=== PATIENT | male | born 1970 | race Caucasian/White ===

== ENCOUNTER 2016-06-08 05:42 | Day surgery (SDC) | payer BC ==
[~2016-06-08] VITALS: Ht 175.3 cm; Wt 96.2 kg
[2016-06-08 09:18] VITALS: BP 132/86; Ht 175.3 cm; Wt 96.2 kg
[2016-06-08] MEDS ORDERED: HYDROCODONE-APA1 TAB PO (10:30)
--- NOTE | 2016-06-08 10:39 | NUR ---
VANCOMYCIN 1G INFUSING UPON ARRIVAL TO PACU
--- NOTE | 2016-06-08 17:34 | NUR ---
1130 IV DC WITH CATHER TIP INTACT
--- NOTE | 2016-06-12 17:08 | OP ---
PATIENT NAME: KAYE COLLAZO JR MEDICAL RECORD: [id number] :66 LOCATION:D.OPS ADMISSION DATE: SURGEON: KELLY LEWIS MD DATE OF OPERATION: 06/08/2016 Orthopedic Surgery Operative Note PREOPERATIVE DIAGNOSIS: Medial meniscus tear of the right knee. POSTOPERATIVE DIAGNOSIS: Medial meniscus tear of the right knee. PROCEDURE: Arthroscopic partial medial meniscectomy, right knee. SURGEON: Kelly Lewis MD ANESTHESIA: General. INTRAOPERATIVE COMPLICATIONS: None. SUMMARY OF PATHOLOGIC FINDINGS: The patient had a complex tear of the posterior horn of medial meniscus consistent with the preoperative MRI. OPERATIVE SUMMARY IN DETAIL: After obtaining the appropriate preoperative orthopedic surgery consents as well as anesthetic consultation, evaluation and clearance, the patient was brought to the operating room and placed on the operating table in supine position. After general laryngeal mask was administered, tourniquet was placed about the proximal aspect of the right lower extremity. Right lower extremity was then prepped and draped in routine sterile fashion. The leg was elevated and exsanguinated, tourniquet inflated to 350 mmHg. Routine inferolateral portal was established followed by superomedial portal and inferomedial portal. Diagnostic arthroscopy did reveal the patient to have the above findings. A meniscotome and an arthroscopic resector were utilized to debride the meniscus back to stable meniscal elements. Having completed this, the knee was insufflated with 30 cc of 0.25% Marcaine with epinephrine and 40 mg of Depo-Medrol. Arthroscopy portals were closed in routine interrupted fashion using 4-0 Prolene. Sterile dressings were applied. The patient was awakened, taken to recovery room in stable condition. All final needle and sponge counts were correct. TRANSINT:[id number] Voice Confirmation ID: [id number] DOCUMENT ID: [id number] KELLY LEWIS MD at 1708 CC: [id number] DICTATION DATE: 06/08/16 1029 NEIGHBORHOOD CONSERVATION OFFICER: 06/08/16 1526 DEP [facility] [place] 06/08/[address] [address]
== END 2016-06-08 12:50 | disposition home or self-care (01) ==
LOC: D.OPS 05:42 → D.PAN 10:15 → D.OPS 10:15
DX: S83.231A Complex tear of medial meniscus, current injury, right knee, initial encounter (principal)

== ENCOUNTER 2017-08-10 10:35 | Inpatient (IN) | payer BC ==
[~2017-08-10] VITALS: Ht 175.3 cm; Wt 98.9 kg
--- NOTE | ~2017-08-10 | OP ---
PATIENT NAME: KAYE COLLAZO JR MEDICAL RECORD: [id number] :66 LOCATION:D.[id number] ADMISSION DATE:08/10/17 SURGEON: KELLY LEWIS MD DATE OF OPERATION: 08/10/2017 PREOPERATIVE DIAGNOSIS: Valgus impacted femoral neck fracture of the left hip. POSTOPERATIVE DIAGNOSIS: Valgus impacted femoral neck fracture of the left hip. PROCEDURE: Asnis pinning of the left hip. ANESTHESIA: General. INTRAOPERATIVE COMPLICATIONS: None. SUMMARY OF PATHOLOGIC FINDINGS: While the hip was over the back and in a more valgus position that I wanted preoperatively, it was moved around in to a much more anatomic position using the fracture table. OPERATIVE SUMMARY IN DETAIL: After obtaining the appropriate preoperative orthopedic surgery consent as well as anesthetic consultation, evaluation, and clearance, the patient was brought to the operating room and placed on the operating table in supine position. After general laryngeal mask airway was administered, the patient was placed on the fracture table. The left leg was placed in the traction boot and right leg was placed in the Well-Leg carroll. Only minimal amount of traction was used. Internal rotation resulted in better realignment of the subcapital femoral neck fracture. The hip was prepped and draped in routine sterile fashion. A small incision was made and then under direct fluoroscopic guidance, 3 Asnis screw guidewires were placed on both AP and lateral fluoroscopic planes. Then, the 6.5 short thread Asnis pin 90 times 2 and 95 times 1 were placed in the appropriate positions with good purchase. Final radiographs were taken and submitted for radiologist review. The wound was irrigated and closed in usual fashion. Sterile dressings were applied. The patient was awakened and taken to recovery in stable condition. All final needle and sponge counts were correct. TRANSINT:[id number] Voice Confirmation ID: [id number] DOCUMENT ID: [id number] KELLY LEWIS MD at 1341 CC: [id number] DICTATION DATE: 08/20/172249 [place] [facility] [place] LAW CLERK: 08/21/17 0901 DIS IN 08/12/17 [place] [address]
[~2017-08-10 10:35] MED LIST: HYDROCODONE-APA1 TAB PO
[2017-08-10 14:34] LABS: BASOPHILS 0.2 % (0-2); EOSINOPHILS 0.4 % (0-7); HEMATOCRIT 40.9 % (42.0-54.0); HEMOGLOBIN 14.4 g/dL (13.5-17.5); IMMATURE GRANULOCYTES 0.3 % (0-5); LYMPHOCYTES 8.4 % (15-50); MCH 30.6 pg (26.0-34.0); MCHC 35.2 g/dL (31.0-37.0); MCV 86.8 fL (80.0-100.0); MEAN PLATELET VOLUME 9.4 fL (7.4-10.4); NEUTROPHILS 83.7 % (40-80); PLATELET COUNT 158 10x3/uL (130-400); RBC 4.71 10x6/uL (4.20-6.10); RDW 12.7 % (11.5-14.5); WBC 13.4 10x3/uL (4.8-10.8)
[2017-08-10 14:38] LABS: INR 1.04 (0.85-1.17); PROTIME 13.2 SECONDS (11.6-15.0)
[2017-08-10 14:49] LABS: ALBUMIN 4.4 g/dL (3.4-5.0); ALKALINE PHOSPHATASE 109 U/L (46-116); ALT (SGPT) 209 U/L (10-68); CALC OSMOLALITY 282 mosm/kg (275-300); CALCIUM 8.9 mg/dL (8.5-10.1); CARBON DIOXIDE 25.6 mmol/L (21.0-32.0); CHLORIDE - SERUM 106 mmol/L (98-107); CREATININE - SERUM 0.8 mg/dL (0.6-1.3); GLUCOSE 152 mg/dL (74-106); MAGNESIUM - SERUM 2.1 mg/dL (1.8-2.4); POTASSIUM - SERUM 4.5 mmol/L (3.5-5.1); PROTEIN - SERUM 7.8 g/dL (6.4-8.2); SODIUM 140 mmol/L (136-145); UREA NITROGEN 15 mg/dL (7-18); eGFR NON AFRICAN AMERICAN > 90 mL/min (90-120)
[2017-08-10 16:41] VITALS: BP 114/78; BMI 32.2
[2017-08-10 20:16] VITALS: BP 126/73
[2017-08-10] MEDS ORDERED: NORVASC5 MG PO (20:46)
[2017-08-10 23:49] VITALS: BP 126/60
[2017-08-11 02:38] LABS: APPEARANCE TURBID (CLEAR); BILIRUBIN NEGATIVE (NEGATIVE); COLOR YELLOW (YELLOW); GLUCOSE 50 mg/dL (NEGATIVE); KETONE SMALL mg/dL (NEGATIVE); NITRITE NEGATIVE (NEGATIVE); PROTEIN NEGATIVE (NEGATIVE); SPECIFIC GRAVITY 1.025 (1.005-1.020); UROBILINOGEN NORMAL (NORMAL)
[2017-08-11 04:20] VITALS: BP 139/60
[2017-08-11 05:08] LABS: BASOPHILS 0.4 % (0-2); EOSINOPHILS 3.6 % (0-7); HEMATOCRIT 37.4 % (42.0-54.0); HEMOGLOBIN 12.6 g/dL (13.5-17.5); IMMATURE GRANULOCYTES 0.3 % (0-5); LYMPHOCYTES 17.3 % (15-50); MCH 29.8 pg (26.0-34.0); MCHC 33.7 g/dL (31.0-37.0); MCV 88.4 fL (80.0-100.0); MEAN PLATELET VOLUME 9.6 fL (7.4-10.4); MONOCYTES 8.1 % (2-11); NEUTROPHILS 70.3 % (40-80); PLATELET COUNT 132 10x3/uL (130-400); RBC 4.23 10x6/uL (4.20-6.10); RDW 12.9 % (11.5-14.5)
[2017-08-11 05:11] LABS: WBC 7.8 10x3/uL (4.8-10.8)
[2017-08-11 05:25] LABS: ALBUMIN 3.5 g/dL (3.4-5.0); ALKALINE PHOSPHATASE 109 U/L (46-116); BILIRUBIN - TOTAL 0.53 mg/dL (0.2-1.3); CALC OSMOLALITY 281 mosm/kg (275-300); CALCIUM 8.2 mg/dL (8.5-10.1); CARBON DIOXIDE 24.2 mmol/L (21.0-32.0); CHLORIDE - SERUM 104 mmol/L (98-107); CREATININE - SERUM 0.8 mg/dL (0.6-1.3); GLUCOSE 175 mg/dL (74-106); POTASSIUM - SERUM 3.9 mmol/L (3.5-5.1); PROTEIN - SERUM 6.7 g/dL (6.4-8.2); SODIUM 139 mmol/L (136-145); UREA NITROGEN 13 mg/dL (7-18); eGFR NON AFRICAN AMERICAN > 90 mL/min (90-120)
[2017-08-11 05:31] LABS: ALT (SGPT) 152 U/L (10-68)
[2017-08-11 08:00] VITALS: BP 125/80
[2017-08-11 12:15] VITALS: BP 152/93
[2017-08-11 13:05] VITALS: Ht 175.3 cm; Wt 98.9 kg
[2017-08-11 15:31] VITALS: BP 130/79
[2017-08-11 20:00] VITALS: BP 127/72
[2017-08-12] VITALS: BP 134/69
[2017-08-12 06:14] VITALS: BP 139/83
[2017-08-12 06:41] LABS: HEMATOCRIT 39.2 % (42.0-54.0); HEMOGLOBIN 13.2 g/dL (13.5-17.5); MCH 29.7 pg (26.0-34.0); MCHC 33.7 g/dL (31.0-37.0); MCV 88.3 fL (80.0-100.0); MEAN PLATELET VOLUME 9.2 fL (7.4-10.4); RBC 4.44 10x6/uL (4.20-6.10); WBC 8.8 10x3/uL (4.8-10.8)
[2017-08-12 08:19] VITALS: BP 155/90
[2017-08-12] MEDS ORDERED: HYDROCODONE-APA1 TAB PO (10:16)
[2017-08-12] MEDS ORDERED: ELIQUIS2.5 MG PO (10:17)
== END 2017-08-12 12:42 | disposition home or self-care (01) | DRG 482 ==
LOC: D.ER 10:35 → D.EDHOLD 15:26 → D.MS 15:38
PROVIDERS: Family Medicine; Nurse Practitioner Family; Orthopaedic Surgery
PROC: 0QH734Z Insertion of Internal Fixation Device into Left Upper Femur, Percutaneous Approach (ICD-10-PCS; principal; 2017-08-11 09:15)
DX: S72.002A Fracture of unspecified part of neck of left femur, initial encounter for closed fracture (principal); V48.4XXA Person boarding or alighting a car injured in noncollision transport accident, initial encounter; I10 Essential (primary) hypertension